=== PATIENT | male | born 1960 | race Caucasian/White ===

== ENCOUNTER 2021-08-22 09:15 | Day surgery (SDC) | payer BC ==
[2021-08-18 14:59] VITALS: BMI 35.9
[~2021-08-22 09:15] MED LIST: LACTATED RINGERS 1,000 ML IV SCH
[2021-08-22 09:52] VITALS: TEMP 97.6
[2021-08-22] MEDS ORDERED: LIDOCAINE 1% (10MG/ML) FOR IV START INTRADERMA ONE (09:59)
[2021-08-22] MEDS ORDERED: PROPOFOL 10 MG/ML 20 ML VIAL IV ONE (10:45)
--- NOTE | 2021-08-22 10:49 | P.GSHP ---
History of Present Illness H&P Date: 08/22/21 Chief Complaint: Colon cancer screening 61-year-old male here today for colonoscopy. Last colonoscopy 8-9 years ago. No bowel complaints. No family history of colon cancer. Past Medical History Past Medical History: GERD/Reflux, Hyperlipidemia, Hypertension, Osteoarthritis (OA) History of Any Multi-Drug Resistant Organisms: None Reported Past Surgical History: Orthopedic Surgery Additional Past Surgical History / Comment(s): sharon feet surgeries,sharon knee replacements Past Anesthesia/Blood Transfusion Reactions: No Reported Reaction Smoking Status: Never smoker - Past Family History Mother Family Medical History: No Reported History Medications and Allergies Home Medications Medication Instructions Recorded Confirmed Type Ascorbic Acid [Vitamin C] 1,000 mg PO DAILY 08/18/21 08/22/21 History Cholecalciferol [Vitamin D3 (25 50 mcg PO DAILY 08/18/21 08/22/21 History Mcg = 1000 Iu)] Cider Vinegar [Apple Cider Vinegar] 300 mg PO DAILY 08/18/21 08/22/21 History Garlic 1 each PO DAILY 08/18/21 08/22/21 History Glucosam/Thee-Msm1/C/Rian/Bosw 1 each PO DAILY 08/18/21 08/22/21 History [Kdzrapashhc-Skgtwrgygui-RBM Tb] Ibuprofen 800 mg PO DAILY PRN 08/18/21 08/22/21 History Lisinopril-Hctz 20-25 mg 1 tab PO DAILY 08/18/21 08/22/21 History [Zestoretic 20-25] Lovastatin [Mevacor] 40 mg PO DAILY 08/18/21 08/22/21 History [place]-3 Fatty Acids/Fish Oil [Fish 2 each PO DAILY 08/18/21 08/22/21 History Oil 1,000 mg Softgel] Turmeric Root Extract [Turmeric] 500 mg PO DAILY 08/18/21 08/22/21 History Vitamin B Complex 1 each PO DAILY 08/18/21 08/22/21 History Zinc 50 mg PO DAILY 08/18/21 08/22/21 History Allergies Allergy/AdvReac Type Severity Reaction Status Date / Time No Known Allergies Allergy Verified 08/18/21 14:52 Surgical - Exam Vital Signs Temp Pulse Resp BP Pulse Ox 97.6 F 71 16 167/88 96 08/22/21 09:48 08/22/21 09:48 08/22/21 09:48 08/22/21 09:48 08/22/21 09:48 Physical exam: General: Well-developed, well-nourished HEENT: Normocephalic, sclerae nonicteric Abdomen: Nontender, nondistended Extremities: No edema Neuro: Alert and oriented Assessment and Plan (1) Colon cancer screening Narrative/Plan: Will proceed with colonoscopy at this time. Current Visit: Yes Status: Acute Code(s): Z12.11 - ENCOUNTER FOR SCREENING FOR MALIGNANT NEOPLASM OF COLON SNOMED Code(s): 316495694
--- NOTE | 2021-08-22 11:08 | P.PCN ---
Date of Procedure: 08/22/21 Procedure(s) Performed: PREOPERATIVE DIAGNOSIS: Colon cancer screening POSTOPERATIVE DIAGNOSIS: Transverse colon polyp 2, sigmoid polyp, mild diverticulosis PROCEDURE: Colonoscopy with snare polypectomy ANESTHESIA: MAC SURGEON: Ozzy Rasheed M.D. SPECIMENS: Polyps ENDOSCOPIC PROCEDURE: The patient was placed on the endoscopy table in the left decubitus position. The Olympus colonoscope was inserted into the anus and passed under direct visualization to the base of the cecum. The appendiceal orifice was visualized. From that point the scope was slowly withdrawn inspecting all surfaces carefully. There were no neoplastic inflammatory or polypoid lesions throughout the cecum or ascending colon. In the transverse colon 2 small polyps were seen and removed using the snare with cautery technique. The remainder of the transverse and descending colon was normal. In the sigmoid colon another small polyp was seen and removed in a similar fashion. The remainder of the sigmoid and rectum was normal. There is mild left-sided diverticulosis. Digital rectal examination was normal. The patient was taken to the recovery room in stable condition per anesthesia guidelines. RECOMMENDATIONS: Resume diet. Await biopsy results.
[2021-08-22 11:19] VITALS: PULSE 68; RESP 12
[2021-08-22 11:57] VITALS: BP 143/88
== END 2021-08-22 12:05 | disposition home or self-care (01) ==
LOC: ORWHC2ENDO 09:15
PROVIDERS: ATTEND Surgery
DX: Z12.11 Encounter for screening for malignant neoplasm of colon (principal); K57.90 Diverticulosis of intestine, part unspecified, without perforation or abscess without bleeding; D12.5 Benign neoplasm of sigmoid colon; D12.3 Benign neoplasm of transverse colon; K21.9 Gastro-esophageal reflux disease without esophagitis; E78.5 Hyperlipidemia, unspecified; I10 Essential (primary) hypertension; M19.90 Unspecified osteoarthritis, unspecified site; Z79.899 Other long term (current) drug therapy
CPT/HCPCS: 88305; 45385; J2704